=== PATIENT | female | born 1980 | race African-American/Black ===

== ENCOUNTER 2016-08-28 09:35 | Outpatient (CLI) ==
[2014-03-24 08:11] VITALS: BMI 34.6
== END 2016-08-28 09:36 | disposition home or self-care (01) ==
LOC: LAB 09:35
PROVIDERS: ATTEND Nurse Practitioner Family
DX: R53.83 Other fatigue (principal); Z00.00 Encounter for general adult medical examination without abnormal findings

== ENCOUNTER 2016-08-29 13:44 | Outpatient (CLI) ==
[2014-03-24 08:11] VITALS: BMI 34.6
[2016-08-29 14:20] LABS: BASOPHILS # (AUTO) 0.1 K/uL (0-0.2); BASOPHILS % (AUTO) 0.6 % (0.0-3.0); EOSINOPHILS # (AUTO) 0.6 K/ul (0.0-0.7); EOSINOPHILS % (AUTO) 6.7 % (0.0-7.0); HEMATOCRIT 37.4 % (37.0-47.0); HEMOGLOBIN 12.4 g/dl (12.0-16.0); IMMATURE GRANULOCYTE % (AUTO) 0.2 % (0.0-5.0); LYMPHOCYTES # (AUTO) 2.2 K/uL (0.60-3.4); LYMPHOCYTES % (AUTO) 26.4 (10.0-50.0); MEAN CORPUSCULAR HEMOGLOBIN 28.5 pg (27.0-31.0); MEAN CORPUSCULAR HGB CONC 33.2 (31.8-35.4); MONOCYTES # (AUTO) 0.4 K/uL (0.4-2.0); MONOCYTES % (AUTO) 4.4 (0-10); NEUTROPHILS # (AUTO) 5.1 K/ul (2.0-6.9); NEUTROPHILS % (AUTO) 61.7; PLATELET COUNT 296 10^3/uL (140-440); RED BLOOD COUNT 4.35 10^6/ul (4.20-5.40); WHITE BLOOD COUNT 8.22 K/ul (4.6-10.2)
--- NOTE | 2016-08-29 14:50 | DI ---
EXAM: Left knee, two-view HISTORY: Pain COMPARISON: 02/08/2010 FINDINGS: The bones are normal. The medial, lateral, and patellofemoral compartments are normal in height. No joint effusion. IMPERSSION: Normal examination.
--- NOTE | 2016-08-29 14:51 | DI ---
EXAM: Right knee two views HISTORY: Pain COMPARISON: 02/08/2010 FINDINGS: The bones are normal. The medial, lateral, and patellofemoral compartments are normal in height. No joint effusion. IMPERSSION: Normal examination.
[2016-08-29 15:42] LABS: ALBUMIN 3.5 g/dL (3.4-5.0); ALBUMIN/GLOBULIN RATIO 0.88; ANION GAP 15.8; BILIRUBIN,TOTAL 0.47 mg/dL (0.00-1.20); BUN/CREATININE RATIO 9.09; CALCIUM 9.1 mg/dL (8.2-10.2); CHOL/HDL RATIO 2.8 (4.5-5.5); CREATININE 0.77 mg/dL (0.60-1.30); FERRITIN 71.98 ng/mL (4.63-204.00); POTASSIUM 3.8 mmol/L (3.5-5.10); TOTAL PROTEIN 7.5 g/dL (6.4-8.2)
== END 2016-08-29 13:45 | disposition home or self-care (01) ==
LOC: RAD 13:44
PROVIDERS: ATTEND Pain Medicine Interventional Pain Medicine
DX: R53.83 Other fatigue (principal); Z00.00 Encounter for general adult medical examination without abnormal findings; M25.561 Pain in right knee; M25.562 Pain in left knee
CPT/HCPCS: 36415; 80053; 80061; 82306; 82607; 82728; 83540; 83550; 84439; 84443; 84466; 85025

== ENCOUNTER 2017-11-13 08:03 | Outpatient (CLI) ==
[2014-03-24 08:11] VITALS: BMI 34.6
--- NOTE | 2017-11-13 09:57 | DI ---
EXAM: Three views of the lumbar spine. History: Lower back pain. Findings: Cholecystectomy clips. No acute fracture or subluxation of the lumbar spine. Disc space h eights are preserved. Moderate colonic stool. Impression: Unremarkable lumbar spine radiograph
--- NOTE | 2017-11-14 12:44 | MRI ---
EXAM: Lumbar spine MRI without contrast. HISTORY: Spinal stenosis. Pain with radiculopathy. COMPARISON: Lumbar spine radiographs 11/13/2017 and lumbar spine MRI 09/18/2014. TECHNIQUE: Multiplanar, multisequence MR images were acquired lumbar spine without contrast. FINDINGS: Conus medullaris ends at T12-L1 and has normal signal intensity. Canal diameter is develo pmentally narrow. Small ribs are present bilaterally at T12. The first [id number] vertebra is numbered L1. There are five non-rib bearing lumbar vertebra. The L5 vertebra is mildly smaller than the remaining lumbar vertebra and has mild dorsal hypoplasia which is considered a normal variant. There is a minor mid lumbar dextroscoliosis and mild disc space narrowing and endplate irregularity a t L3-4. Disc dessication is present at L3-4 and L4-5. The partially visualized liver, spleen and kidneys are unremarkable. There are no paravertebral mass es. There is mild osteoarthrosis of both sacroiliac joints. T12-L1: The intervertebral disc is normal. L1-2: The intervertebral disc is normal. Neural foramina are patent. L2-3: There is a minor disc bulge that minimally narrows inferior neural foramina bilaterally. Ther e is no central canal stenosis. L3-4: There is a mild disc bulge and minor bilateral facet arthropathy. There is irregularity conca vity of the endplates with modic type 2 endplate changes along the left endplates. There is mild lef t and minor right foraminal stenosis. There is no central canal stenosis. L4-5: There is a mild posterior disc bulge that minimally effaces the ventral thecal sac and minor b ilateral facet arthropathy. Mild ligamentum flavum hypertrophy. This causes minor central canal graciela nosis and mild right and mild to moderate left neural foraminal stenosis. AP diameter of the thecal sac is 9.4 mm. L5-S1: There is a minor posterior disc bulge that minimally effaces the ventral thecal sac which is mildly small at this level. There is tapering of the thecal sac and it ends at S1-2. Minor facet ar thropathy is present without foraminal stenosis. IMPRESSION: 1. Mild degenerative disc disease L3-4 which has mildly progressed compared to previously and there are now focal modic type 2 left lateral endplate changes. 2. Minor central canal stenosis L4-5. 3. No lumbar disc herniations or pars interarticularis defects.
== END 2017-11-13 08:04 | disposition home or self-care (01) ==
LOC: RAD 08:03
PROVIDERS: ATTEND Pain Medicine Interventional Pain Medicine
DX: M96.1 Postlaminectomy syndrome, not elsewhere classified (principal); M47.816 Spondylosis without myelopathy or radiculopathy, lumbar region; M51.17 Intervertebral disc disorders with radiculopathy, lumbosacral region; M51.16 Intervertebral disc disorders with radiculopathy, lumbar region; M51.36 Other intervertebral disc degeneration, lumbar region; M51.37 Other intervertebral disc degeneration, lumbosacral region; M47.817 Spondylosis without myelopathy or radiculopathy, lumbosacral region; M48.062 Spinal stenosis, lumbar region with neurogenic claudication; M48.061 Spinal stenosis, lumbar region without neurogenic claudication
CPT/HCPCS: 36415; 82565

== ENCOUNTER 2018-10-23 07:58 | Outpatient (CLI) | payer OTHER ==
[2014-03-24 08:11] VITALS: BMI 34.6
--- NOTE | 2018-10-23 09:58 | DI ---
EXAM: CERVICAL SPINE, 3 VIEWS HISTORY: Degenerative disc disease. FINDINGS: There is subtle reversal of normal cervical lordosis centered at the mid spine level. The re is no degenerative disc or facet disease seen. There is no spondylolisthesis, loss of vertebral b mike height or fracture. Lateral masses of C1 and C2 are normally aligned and the odontoid process is intact. IMPRESSION: 1. Subtle reversal lordosis. Otherwise unremarkable findings.
--- NOTE | 2018-10-24 08:47 | MRI ---
EXAM: Cervical spine MRI without contrast TECHNIQUE: Multiplanar multisequence MRI of the cervical spine was performed without contrast. COMPARISON: Cervical spine series from 10/23/2018 and MRI of the cervical spine from 01/05/2015 HISTORY: Neck pain FINDINGS: The examination is fairly stable. There is no compression fracture. There is no significa nt bone marrow edema. There is loss of the normal cervical lordosis. There is no acute soft disc bessy iation or extrusion. There is no significant spinal stenosis. Cord signal is normal without evidence of edema, myelomalacia, demyelination, mass, syrinx or infarct. There are no abnormal flow voids in the canal to suggest a vascular malformation. Visualized soft tissues and intracranial contents shabibr w no acute abnormality. There are no pathologic lymph nodes. The prevertebral soft tissues are not thickened. There is no Chiari malformation or acute ligamentous injury. C1-2: There is no significant degenerative change. Alignment of the craniocervical junction is anato kailash. There is no bone marrow edema, the dens is intact. C2-3: There is mild disc space desiccation. C3-4: There is mild disc space desiccation. C4-5: There is mild disc space desiccation and minimal ridging of the posterior longitudinal ligament . Canal stenosis: None C5 neural foraminal stenosis: None C5-6: There is disc space desiccation and mild ridging of the posterior longitudinal ligament. Canal stenosis: None C6 neural foraminal stenosis: None C6-7: There is mild disc space desiccation and a minimal bulge. Canal stenosis: Mild C7 neural foraminal stenosis: None C7-T1: There is disc space desiccation and some mild ridging of the posterior longitudinal ligament. Canal stenosis: None C8 neural foraminal stenosis: None IMPRESSION: 1. Nonfocal exam as above with no significant foraminal or central canal narrowing and no bone marro w edema or disc herniation.
== END 2018-10-23 07:59 | disposition home or self-care (01) ==
LOC: RAD 07:58
PROVIDERS: ATTEND Pain Medicine Interventional Pain Medicine
DX: M50.321 Other cervical disc degeneration at C4-C5 level (principal); M50.322 Other cervical disc degeneration at C5-C6 level; M50.323 Other cervical disc degeneration at C6-C7 level; M50.31 Other cervical disc degeneration, high cervical region; M50.33 Other cervical disc degeneration, cervicothoracic region; M47.812 Spondylosis without myelopathy or radiculopathy, cervical region; M47.813 Spondylosis without myelopathy or radiculopathy, cervicothoracic region